=== PATIENT | female | born 1985 | race African-American/Black ===

== ENCOUNTER 2017-01-13 18:30 | Emergency (ER) | payer SELFPAY ==
[~2017-01-13] VITALS: Ht 165.1 cm; Wt 74.8 kg
[~2017-01-13 18:30] MED LIST: ALBUPOW26; DEPAKOT; DILANTIN; DIVA500T53 PO; GABA100C PO; LEVE500T22 PO; PHEN100C70 PO
[2017-01-13] MEDS ORDERED: LORazepam 2MG/ML-1ML VIAL ONE (19:19)
[2017-01-13] MEDS ORDERED: LORazepam 2MG/ML-1ML VIAL IV ONE (19:30)
[2017-01-13] MEDS ORDERED: SODIUM CHLORIDE 0.9% 1,000 ML IV ONE (21:51)
[2017-01-13] MEDS ORDERED: LEVETIRACETAM INJ 500 MG in SODIUM CHL 0.9% 100 ML IV ONE (22:00)
[2017-01-13 22:23] LABS: Urine Bilirubin Negative (Negative); Urine Blood Negative /uL (Negative); Urine Color Colorless (Yellow); Urine Glucose Normal (Normal); Urine Ketone Negative (Negative); Urine Nitrite Negative (Negative); Urine RBC 1 /hpf (0 - 4); Urine Squamous Epithelial Cell FEW /hpf (<5); Urine Urobilinogen Normal (Negative)
[2017-01-13 22:33] LABS: Basophils # (auto) 0 uL; Basophils % (auto) 0.6 % (0.0-2.0); Eosinophils # (auto) 0.2 uL; Eosinophils % (auto) 3.1 % (0.0-7.0); Hematocrit 33.4 % (36.0-46.0); Hemoglobin 10.9 g/dL (12.2-16.2); Lymphocytes # (auto) 2.9 uL; Lymphocytes % (auto) 39.8 % (10.0-50.0); Mean Corpuscular Hemoglobin 27.1 pg (28.0-32.0); Mean Corpuscular Hgb Conc. 32.7 g/dL (32.0-36.0); Mean Corpuscular Volume 82.7 fL (80.0-100.0); Mean Platelet Volume 9.6 fL (7.4-10.4); Monocytes # (auto) 0.5 uL; Monocytes % (auto) 6.8 % (0.0-12.0); Neutrophils # (auto) 3.6 uL; Neutrophils % (auto) 49.7 % (37.0-80.0); Nucleated Red Blood Cells % 0.1 %; Platelet Count (auto) 177 10^3/uL (140-450); Red Cell Distribution Width 14.4 % (11.6-16.0); White Blood Cell 7.3 10^3/uL (4.4-10.8)
[2017-01-13 22:50] LABS: INR 0.95 (0.9-1.15); Partial Thromboplastin Time 29.4 sec (22.64-33.71); Prothrombin Time 10.3 sec (9.37-12.3)
[2017-01-13 22:58] LABS: Albumin 3.2 g/dL (3.4-5.0); BUN/Creatinine Ratio 16.7; Calcium 8.1 mg/dL (8.5-10.1); Potassium 3.8 mmol/L (3.5-5.1)
[2017-01-13 23:01] LABS: Bilirubin, Total 0.2 mg/dL (0.2-1.0); Total Protein 6.7 g/dL (6.4-8.2)
[2017-01-13 23:40] VITALS: BP 101/61
== END 2017-01-14 00:19 | disposition home or self-care (01) ==
LOC: EDBD 18:30 → ER 18:35
DX: G40.909 Epilepsy, unspecified, not intractable, without status epilepticus (principal); J45.909 Unspecified asthma, uncomplicated; Z98.51 Tubal ligation status; F17.210 Nicotine dependence, cigarettes, uncomplicated
CPT/HCPCS: 36415; 70450; 80053; 81001; 82542; 85025; 85610; 85730; 96365; 96375; 99285; J1953; J2060

== ENCOUNTER 2017-01-22 19:38 | Emergency (ER) | payer MEDICAID, OTHER ==
[~2017-01-22] VITALS: Ht 165.1 cm; Wt 74.8 kg
[2017-01-22] MEDS ORDERED: MORPHINE SULF INJ 2 MG/ML SYRINGE 1ML IV ONE (20:30)
[2017-01-22] MEDS ORDERED: ONDANSETRON HCL 4 MG/2 ML VIAL IV ONE (20:30)
[2017-01-22 20:46] LABS: Basophils # (auto) 0 uL; Basophils % (auto) 0.4 % (0.0-2.0); Eosinophils # (auto) 0.1 uL; Eosinophils % (auto) 1.6 % (0.0-7.0); Hematocrit 34.9 % (36.0-46.0); Hemoglobin 11.6 g/dL (12.2-16.2); Lymphocytes # (auto) 2.6 uL; Lymphocytes % (auto) 28.5 % (10.0-50.0); Mean Corpuscular Hemoglobin 27.6 pg (28.0-32.0); Mean Corpuscular Hgb Conc. 33.2 g/dL (32.0-36.0); Mean Platelet Volume 9.4 fL (6.9-10.8); Monocytes # (auto) 0.5 uL; Neutrophils # (auto) 5.7 uL; Neutrophils % (auto) 63.5 % (37.0-80.0); Nucleated Red Blood Cells % 0.1 %; Platelet Count (auto) 214 10^3/uL (140-450); Red Cell Distribution Width 14.8 % (11.8-14.3)
[2017-01-22 20:52] LABS: Albumin 3.9 g/dL (3.4-5.0); BUN/Creatinine Ratio 17.2; Calcium 8.6 mg/dL (8.5-10.1); Potassium 3.7 mmol/L (3.5-5.1)
[2017-01-22 20:55] LABS: Bilirubin, Total 0.2 mg/dL (0.2-1.0); Total Protein 7.7 g/dL (6.4-8.2)
[2017-01-22 21:52] LABS: Urine Bilirubin Negative (Negative); Urine Blood 2+ /uL (Negative); Urine Color Yellow (Yellow); Urine Glucose Normal (Normal); Urine Ketone Negative (Negative); Urine Nitrite Negative (Negative); Urine RBC <1 /hpf (0 - 4); Urine Squamous Epithelial Cell FEW /hpf (<5); Urine Urobilinogen Normal (Negative)
[2017-01-22] MEDS ORDERED: ACETAMINOPHEN 325 MG TAB PO ONE (22:45)
[2017-01-23] MEDS ORDERED: ONDANSETRON HCL 4 MG/2 ML VIAL IV ONE (00:45)
[2017-01-23] MEDS ORDERED: MORPHINE SULF INJ 2 MG/ML SYRINGE 1ML IV ONE (00:45)
[2017-01-23 01:28] VITALS: BP 105/77
== END 2017-01-23 01:28 | disposition home or self-care (01) ==
LOC: EDBD 19:38 → ER 19:47
DX: G40.909 Epilepsy, unspecified, not intractable, without status epilepticus (principal); J45.909 Unspecified asthma, uncomplicated; R42 Dizziness and giddiness; R53.1 Weakness; F17.210 Nicotine dependence, cigarettes, uncomplicated; Z98.51 Tubal ligation status; M54.2 Cervicalgia
CPT/HCPCS: 36415; 70450; 72125; 80053; 80164; 80307; 81001; 82542; 84702; 85025; 96374; 96375; 96376; 99285; J2270; J2405